=== PATIENT | female | born 2000 | race Two or more races ===

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

== ENCOUNTER 2024-02-07 15:55 | Inpatient (IN) ==
[2024-02-07 17:01] LABS: ABS Monocytes 0.8 10^3/uL (0.0-0.9); ABS Neutrophils 12.5 10^3/uL (1.5-7.6); ABS Nucleated RBC 0.01 10^3/ul; Hematocrit 40.6 % (35-45); Hemoglobin 13.5 g/dL (11.5-14.3); Lymphocyte % 6.8 %; Mean Corpuscular Hemoglobin 29.3 pg (27-33); Mean Corpuscular Hgb Conc 33.2 g/dL (31-36); Mean Corpuscular Volume 88.3 fL (80-97); Mean Platelet Volume 8.6 fL (7.5-11.2); Platelet Count 189 10^3/uL (150-450); Red Blood Count 4.59 10^6/uL (3.63-4.92); Red Cell Distribution Width 12.8 % (12-17); White Blood Count 14.4 10^3/uL (3.8-11.8)
[2024-02-07] MEDS: NS 0.9% 1000 ml BAG 1,000 ML IV ONE (17:10)
[2024-02-07 17:14] LABS: Activated Partial Thrombo Time 30.7 seconds (26.0-38.0); INR 1.06 (0.85-1.14)
[2024-02-07] MEDS ORDERED: methylPREDNISolone SOD SUCC 1000 MG ML VIAL IVPB ONE (17:16)
[2024-02-07] MEDS: Iodixanol (CONTRAST) 320 MG/ML 100 ML SDV IV ONE (17:23)
[2024-02-07 18:31] LABS: Albumin/Globulin Ratio 1.4 (1-3); C Reactive Protein 9.63 mg/L (<8.01); Calcium 8.7 mg/dL (8.6-10.3); Creatinine, Serum 0.64 mg/dL (0.51-0.95); Direct Bilirubin 0.1 mg/dL (0.03-0.18); Globulin 2.8 g/dL (2-4); Indirect Bilirubin 0.6 mg/dL (0.3-1.0); Potassium 3.9 mmol/L (3.5-5.0); Total Bilirubin 0.7 mg/dL (0.2-1.0); Total Protein 6.8 g/dL (6.4-8.9); eGFR CKD-EPI 126.5 (>60)
[2024-02-07] MEDS: Vancomycin 1,000 MG in NS 0.9% 250 ml 250 ML IVPB ONE (18:31)
[2024-02-07] MEDS: cefTRIAXone 2 gm/50 mL D5W 2 GM/50 ML BAG IV ONE (18:36)
[2024-02-07 19:05] LABS: Urine Appearance Clear; Urine Bilirubin Negative (Negative); Urine Blood Negative (Negative); Urine Color Light-Yellow; Urine Glucose Negative (Negative); Urine Ketones 2+ (Negative); Urine Nitrite Negative (Negative); Urine Protein Trace (Negative); Urine Specific Gravity >1.050 (1.002-1.030); Urine Urobilinogen Negative (Negative); Urine pH 7.5 (5.0-8.0)
[2024-02-07] MEDS: methylPREDNISolone SOD SUCC 1000 MG in NS 0.9% 100 ML IVPB ONE (19:49)
[2024-02-07] MEDS ORDERED: Vancomycin 1,250 MG in NS 0.9% 250 ml 250 ML IVPB SCH (21:23)
[2024-02-07] MEDS ORDERED: Ondansetron 4 mg VIAL 2 MG/ML 2 ml VIAL IV PRN (21:27)
[2024-02-07] MEDS ORDERED: Vancomycin per Pharmacy 1 EA NOTE FOLLOW UP PRN (21:33)
[2024-02-08] MEDS: Vancomycin 1000 MG in NS 0.9% 250 ML IVPB SCH (01:55)
[2024-02-08] MEDS: methylPREDNISolone SOD SUCC 1000 MG in NS 0.9% 100 ML IVPB SCH (08:01)
[2024-02-08] MEDS ORDERED: cefTRIAXone 2 gm/50 mL D5W 2 GM/50 ML BAG IV SCH (09:00)
[2024-02-08] MEDS ORDERED: methylPREDNISolone SOD SUCC 1,000 MG in NS 0.9% 1000 ml BAG 1,000 ML IVPB SCH (09:00)
[2024-02-08 10:19] LABS: ABS Lymphocytes 0.4 10^3/uL (1.0-4.8); ABS Neutrophils 8.4 10^3/uL (1.5-7.6); Hematocrit 41.2 % (35-45); Hemoglobin 14.2 g/dL (11.5-14.3); Lymphocyte % 4.4 %; Mean Corpuscular Hemoglobin 30.6 pg (27-33); Mean Corpuscular Hgb Conc 34.5 g/dL (31-36); Mean Corpuscular Volume 88.7 fL (80-97); Platelet Count 188 10^3/uL (150-450); Red Blood Count 4.65 10^6/uL (3.63-4.92); Red Cell Distribution Width 12.6 % (12-17); White Blood Count 8.9 10^3/uL (3.8-11.8)
[2024-02-08 10:53] LABS: Anion Gap 13 mmol/L (2-16); Blood Urea Nitrogen 8 mg/dL (6-24); CO2 Carbon Dioxide 20 mmol/L (22-32); Calcium 9.2 mg/dL (8.6-10.3); Chloride 105 mmol/L (101-111); Creatinine, Serum 0.63 mg/dL (0.51-0.95); Glucose 240 mg/dL (70-100); Potassium 3.6 mmol/L (3.5-5.0); Sodium 138 mmol/L (135-145)
[2024-02-08] MEDS: Pantoprazole VIAL 40 MG VIAL IV SCH (11:31)
[2024-02-08 14:01] LABS: HCG Pregnancy < 0.60 mIU/mL
[2024-02-08 16:29] LABS: Creatinine, Serum 0.85 mg/dL (0.51-0.95); eGFR CKD-EPI 98.1 (>60)
[2024-02-08] MEDS ORDERED: Vancomycin Trough Check NOTE FOLLOW UP ONE (17:30)
[2024-02-09 08:38] LABS: Hematocrit 38.2 % (35-45); Hemoglobin 12.8 g/dL (11.5-14.3); Mean Corpuscular Hemoglobin 29.5 pg (27-33); Mean Corpuscular Hgb Conc 33.6 g/dL (31-36); Mean Platelet Volume 8.7 fL (7.5-11.2); Platelet Count 198 10^3/uL (150-450); Red Blood Count 4.35 10^6/uL (3.63-4.92); Red Cell Distribution Width 12.7 % (12-17); White Blood Count 15.4 10^3/uL (3.8-11.8)
[2024-02-09 09:10] LABS: Calcium 8.9 mg/dL (8.6-10.3); Creatinine, Serum 0.55 mg/dL (0.51-0.95); Magnesium 1.9 mg/dL (1.9-2.7); Potassium 4.1 mmol/L (3.5-5.0); eGFR CKD-EPI 131.2 (>60)
[2024-02-10 05:59] LABS: Hematocrit 35.9 % (35-45); Hemoglobin 12.5 g/dL (11.5-14.3); Mean Corpuscular Hemoglobin 30.5 pg (27-33); Mean Corpuscular Hgb Conc 34.9 g/dL (31-36); Mean Corpuscular Volume 87.6 fL (80-97); Platelet Count 178 10^3/uL (150-450); Red Cell Distribution Width 12.9 % (12-17); White Blood Count 11.6 10^3/uL (3.8-11.8)
[2024-02-10 06:27] LABS: Calcium 8.8 mg/dL (8.6-10.3); Creatinine, Serum 0.53 mg/dL (0.51-0.95); Potassium 4.2 mmol/L (3.5-5.0); eGFR CKD-EPI 132.4 (>60)
[2024-02-11 06:14] LABS: Hematocrit 35.2 % (35-45); Hemoglobin 12.3 g/dL (11.5-14.3); Mean Corpuscular Hemoglobin 30.2 pg (27-33); Mean Corpuscular Hgb Conc 34.8 g/dL (31-36); Mean Corpuscular Volume 86.7 fL (80-97); Mean Platelet Volume 9.1 fL (7.5-11.2); Platelet Count 182 10^3/uL (150-450); Red Blood Count 4.06 10^6/uL (3.63-4.92); Red Cell Distribution Width 12.6 % (12-17); White Blood Count 12.8 10^3/uL (3.8-11.8)
[2024-02-11 07:10] LABS: Calcium 8.5 mg/dL (8.6-10.3); Creatinine, Serum 0.55 mg/dL (0.51-0.95); Potassium 4.2 mmol/L (3.5-5.0); eGFR CKD-EPI 131.2 (>60)
[2024-02-11 10:17] VITALS: BP 122/71
== END 2024-02-11 14:35 | disposition home or self-care (01) | DRG 137 ==
LOC: EDHOLD 15:55 → ED 15:55 → MEDTELE 21:18 → SUATTDRO 02-08 15:14
PROVIDERS: ADMIT Internal Medicine; ATTEND Internal Medicine